=== PATIENT | female | born 2000 | race Caucasian/White ===

== ENCOUNTER 2023-06-16 17:29 | Emergency (ER) | payer OTHER, SELFPAY ==
[2023-06-16 18:20] VITALS: BP 137/83; PULSE 85; RESP 17; TEMP 36.7; O2SAT 100; BMI 23.8
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
== END 2023-06-16 18:46 | disposition home or self-care (01) ==
PROVIDERS: Emergency Provider Emergency Medicine
DX: S13.4XXA Sprain of ligaments of cervical spine, initial encounter (principal); S39.012A Strain of muscle, fascia and tendon of lower back, initial encounter; V73.5XXA Driver of bus injured in collision with car, pick-up truck or van in traffic accident, initial encounter; Y93.9 Activity, unspecified; Y92.410 Unspecified street and highway as the place of occurrence of the external cause; Y99.9 Unspecified external cause status
CPT/HCPCS: 99282; 99283

== ENCOUNTER 2023-11-21 00:28 | Emergency (ER) | payer OTHER, SELFPAY ==
--- NOTE | ~2023-11-21 | XR_ITS ---
EXAMINATION: XR ABDOMEN KUB CLINICAL INDICATION: Right-sided pain COMPARISON: None available. TECHNIQUE: AP view of the abdomen. FINDINGS: Bowel gas pattern is nonobstructive. Large amount of stool is present in the colon. Limited assessment for free air with supine positioning. Small calcification in the lateral right upper quadrant may lie in costal cartilage. Right upper quadrant clips are favored to reflect sequelae of prior cholecystectomy. No acute osseous findings are seen. XR/XR KUB IMPRESSION: Nonobstructive bowel gas pattern. Large volume of stool.
[2023-11-21 00:29] VITALS: BP 145/80; PULSE 97; RESP 16; TEMP 37.1; O2SAT 99; BMI 24.2
[2023-11-21 00:46] LABS: Appearance Urine Clear; Color Urine Yellow; Glucose Urine UA Negative (Negative); Leukocyte Esterase Urine Negative (Negative); Nitrite Urine Negative (Negative); Specific Gravity - Urine >= 1.030 (1.005-1.025); Urine Blood Negative (Negative); Urine Ketones Negative (Negative); Urine Protein Negative (Neg-Trace)
[2023-11-21 00:47] LABS: UPreg QC Valid YES; Urine Pregnancy NEGATIVE (NEGATIVE)
[2023-11-21 01:01] LABS: MANUAL DIFF FLAG NO
[2023-11-21 01:02] LABS: Basophils Percent Auto 0.5 % (0-2); Eosinophils Absolute Auto 0.2 X10*3/uL (0.0-0.4); Eosinophils Percent Auto 2.4 % (0-4); Hematocrit 37.9 % (37.0-47.0); Imm Gran Abs Auto 0.01 X10*3/uL (0.00-0.03); Imm Gran Pct Auto 0.1 % (0.0-0.4); Lymphocytes Absolute Auto 2.6 X10*3/uL (1.2-4.9); Lymphocytes Percent Auto 31.3 % (20-40); Mean Corpuscular HGB Conc 34.3 g/dl (31.0-35.0); Mean Corpuscular Volume 87.5 fL (80.0-98.0); Mean Platelet Volume 9.6 fL (9.4-12.3); Monocytes Absolute Auto 0.6 X10*3/uL (0.1-1.2); Monocytes Percent Auto 7.1 % (2-11); Neutrophils Absolute Auto 4.9 x10*3/uL (2.0-8.3); Neutrophils Percent Auto 58.6 % (45-73); Platelet Count 282 X10*3/uL (160-400); Red Blood Count 4.33 X10*6/uL (4.20-5.50); Red Cell Distribution Width 11.9 % (11.0-16.0); White Blood Count 8.3 X10*3/uL (4.8-10.8)
[2023-11-21 01:18] LABS: Alanine Aminotransferase 17 U/L (0-31); Albumin Level 4.4 g/dL (3.5-5.0); Alkaline Phosphatase 58 U/L (39-117); Anion Gap 13 (12-20); Aspartate Amino Transferase 24 U/L (5-31); Bilirubin Direct < 0.2 mg/dL (0.0-0.5); Bilirubin Total 0.2 mg/dL (0.0-1.0); Blood Urea Nitrogen 14 mg/dL (9-16); Calcium 9.4 mg/dL (8.4-10.2); Carbon Dioxide 21 mmol/L (22-29); Chloride 108 mmol/L (96-108); Estimated Glomerular Filt Rate > 60; Glucose Random 98 mg/dL (60-115); Lipase 19 U/L (8-78); Potassium 3.7 mmol/L (3.3-5.1); Sodium 138 mmol/L (135-145); Total Protein 7.7 g/dL (6.5-8.0)
[2023-11-21 02:47] VITALS: BP 131/74; PULSE 76; RESP 16; TEMP 36.6; O2SAT 100
[2023-11-21 02:54] LABS: Appearance Urine Clear; Color Urine Yellow; Glucose Urine UA Negative (Negative); Leukocyte Esterase Urine Negative (Negative); Nitrite Urine Negative (Negative); Specific Gravity - Urine >= 1.030 (1.005-1.025); Urine Blood Negative (Negative); Urine Ketones Negative (Negative); Urine Protein Negative (Neg-Trace)
[2023-11-21 03:01] LABS: Bacteria Urine Trace (None Seen); RBC Urine 0-2 /HPF (0-2); WBC Urine 0-5 /HPF (0-5)
[2023-11-21 03:02] LABS: Hyaline Casts Urine 0-2 /LPF (0-2)
[2023-11-21] MEDS: Ibuprofen 400 MG TABLET PO (03:28)
[2023-11-21] MEDS: Acetaminophen 325 MG TABLET 975 MG PO (03:28)
--- NOTE | 2023-11-21 03:34 | ED_ITS ---
HPI - Abdominal Pain General Chief Complaint: Abdominal Pain Stated Complaint: pain R side Time Seen by Provider: 11/21/23 02:38 Source: patient Mode of arrival: ambulatory History of Present Illness HPI narrative: Female who reports right-sided pelvic discomfort in the lower abdomen that started since yesterday and is rated as a 10/10, she reports some nausea and dizziness as well as dysuria but denies any fever, chills and no vomiting. Patient states that her LMP was approximately 3 weeks ago. Patient reports she has been treated for chlamydia twice. Related Data Previous Rx's Medication Instructions Recorded cyclobenzaprine 5 mg tablet 5 mg PO TID PRN muscle spasm #10 06/16/23 tabs lidocaine 5 % topical patch 1 patch topical DAILY #15 ea 06/16/23 Allergies Allergy/AdvReac Type Severity Reaction Status Date / Time No Known Allergies Allergy Verified 11/21/23 00:32 Review of Systems Review of Systems Pertinent positives and negatives as stated in HPI PMFSH Past Medical History Source: nursing notes reviewed Social History Social History Advance Directives: No Advance Directives Information Provided: No Physical Exam ED Vital Signs: Vital Signs - 24 hr 11/21/23 00:29 11/21/23 02:47 Temperature 98.7 F 97.8 F Pulse Rate 97 76 Respiratory Rate 16 16 Blood Pressure 145/80 H 131/74 Pulse Oximetry 99 100 Oxygen Delivery Method Room Air Room Air BMI result Body Mass Index 24.2 VITAL SIGNS: Reviewed. GENERAL: Well developed, well nourished, in no acute distress. HEAD: Normocephalic/atraumatic EYES: PERRLA, EOMI EARS: Ext canals without abnormality OROPHARYNX: no oral lesions noted, posterior pharynx clear NECK: Supple, no adenopathy LUNGS: Normal breath sounds. No adventitious sounds or accessory muscle use. SpO2<100> CARDIOVASCULAR: Regular rate and rhythm without noted murmurs ABDOMEN: Soft, non-tender, non-distended with bowel sounds. MUSCULOSKELETAL: No tenderness, deformities, or effusions noted on gross inspection. EXTREMITIES: No cyanosis, clubbing or edema. SKIN: Inspection of the skin reveals no rashes NEUROLOGIC: Alert and oriented x 4. Strength and sensation to light touch were grossly intact x 4. Medical Decision Making Medical Decision Making MDM Narrative: This is a 23 female who otherwise appears well and has a history and clinical presentation, DDX: UTI, constipation, ectopic, low clinical suspicion for appendicitis and no suspicion for obstruction I reviewed all investigations and hematologic indices are grossly within normal limits without any noted derangements, patient remained afebrile and otherwise appears comfortable. Chemistry indices are grossly within normal limits without evidence of or electrolyte/liver enzyme derangements. Lipase is within normal limits. Urinalysis is negative for UTI or hematuria. KUB demonstrates a nonobstructive bowel gas pattern but notes that there is a large amount of stool. All results and findings were discussed with the patient at the bedside. My interpretation is that patient may be suffering from constipation as well as a possible component of [place]. Differential Diagnosis Differential Diagnoses: The differential diagnosis associated with the presentation includes Please see the discussion above Admission/Observation Consideration of admission/observation: Escalation of care including admission/observation considered Please see the discussion above Lab Data [facility] Lab Attestation statement: I reviewed the patient's lab results. Please see the discussion above 11/21/23 00:54 11/21/23 00:54 Labs: Lab Results 11/21/23 11/21/23 11/21/23 Range/Units 00:39 00:54 02:49 WBC 8.3 (4.8-10.8) X10*3/uL RBC 4.33 (4.20-5.50) X10*6/uL Hgb 13.0 (12.0-16.0) g/dl Hct 37.9 (37.0-47.0) % MCV 87.5 (80.0-98.0) fL MCH 30.0 (27.0-33.0) pg MCHC 34.3 (31.0-35.0) g/dl RDW 11.9 (11.0-16.0) % Plt Count 282 (160-400) X10*3/uL MPV 9.6 (9.4-12.3) fL Immature Gran % (Auto) 0.1 (0.0-0.4) % Neut % (Auto) 58.6 (45-73) % Lymph % (Auto) 31.3 (20-40) % [place] % (Auto) 7.1 (2-11) % Eos % (Auto) 2.4 (0-4) % Baso % (Auto) 0.5 (0-2) % Lymph # (Auto) 2.6 (1.2-4.9) X10*3/uL [place] # (Auto) 0.6 (0.1-1.2) X10*3/uL Eos # (Auto) 0.2 (0.0-0.4) X10*3/uL Baso # (Auto) 0.0 (0.0-0.2) X10*3/uL Abs Immat Gran (auto) 0.01 (0.00-0.03) X10*3/uL Absolute Neuts (auto) 4.9 (2.0-8.3) x10*3/uL Absolute Nucleated RBC 0.000 (0.0-0.012) X10*3/uL Nucleated RBC % (auto) 0.0 (0.0-0.2) /100WBC Sodium 138 (135-145) mmol/L Potassium 3.7 (3.3-5.1) mmol/L Chloride 108 (96-108) mmol/L Carbon Dioxide 21 L (22-29) mmol/L Anion Gap 13 (12-20) BUN 14 (9-16) mg/dL Creatinine 0.78 (0.5-1.4) mg/dL Estim Creat Clear Calc 96.0 Estimated GFR > 60 Random Glucose 98 (60-115) mg/dL Calcium 9.4 (8.4-10.2) mg/dL Total Bilirubin 0.2 (0.0-1.0) mg/dL Direct Bilirubin < 0.2 (0.0-0.5) mg/dL AST 24 (5-31) U/L ALT 17 (0-31) U/L Alkaline Phosphatase 58 (39-117) U/L Total Protein 7.7 (6.5-8.0) g/dL Albumin 4.4 (3.5-5.0) g/dL Lipase 19 (8-78) U/L Urine Color Yellow Yellow Urine Appearance Clear Clear Urine pH 6.0 6.0 (5.0-9.0) Ur Specific [place] >= 1.030 H >= 1.030 H (1.005-1.025) Urine Protein Negative Negative (Neg-Trace) mg/dL Urine Glucose (UA) Negative Negative (Negative) mg/dL Urine Ketones Negative Negative (Negative) mg/dL Urine Blood Negative Negative (Negative) Urine Nitrite Negative Negative (Negative) Ur Leukocyte Esterase Negative Negative (Negative) Urine RBC 0-2 (0-2) /HPF Urine WBC 0-5 (0-5) /HPF Ur Squamous Epith Cells 6-10 (0-2) /HPF Urine Bacteria Trace (None Seen) Hyaline Casts 0-2 (0-2) /LPF Urine Test NEGATIVE (NEGATIVE) Radiology Impression Discussion of test interpretation with radiology: I have reviewed the radiologist's reading. Radiologist Impression: Please see the discussion above Medications Administered Discontinued Medications Generic Name Dose Route Start Last Admin Trade Name Freq PRN Reason Stop Dose Admin Acetaminophen 975 mg 11/21/23 03:19 11/21/23 03:28 Acetaminophen 325 Mg Tablet PO 11/21/23 03:20 975 mg ONCE ONE Administration Ibuprofen 400 mg 11/21/23 03:19 11/21/23 03:28 Ibuprofen 400 Mg Tablet PO 11/21/23 03:20 400 mg ONCE ONE Administration Discharge Plan Discharge Clinical Impression: Constipation Patient Disposition: Home, Self-Care Instructions: Polyethylene Glycol 3350 (By mouth), Constipation (ED), High Fiber Diet (ED) Additional Instructions: 1. Resume all home medications as prescribed. 2. Recommend utilizing [id number] MiraLax as this may help with suspected constipation. 3. Follow-up with your primary care doctor at your earliest convenience. Please return to the emergency room should you experience any worsening symptoms such as nausea/vomiting/fever/chills Prescriptions: No Action cyclobenzaprine 5 mg tablet 5 mg PO TID PRN (Reason: muscle spasm) Qty: 10 0RF lidocaine 5 % adhesive patch,medicated 1 patch topical DAILY Qty: 15 0RF Rx Instructions: leave on most painful area for up to 12 hrs
== END 2023-11-21 03:59 | disposition home or self-care (01) ==
PROVIDERS: Emergency Provider Student in an Organized Health Care Education/Training Program
DX: K59.00 Constipation, unspecified (principal); R10.31 Right lower quadrant pain; Z79.899 Other long term (current) drug therapy
CPT/HCPCS: 36415; 74018; 80048; 80076; 81001; 81003; 81025; 83690; 85025; 99283; 99284

== ENCOUNTER 2024-05-26 21:13 | Emergency (ER) | payer OTHER, SELFPAY ==
[2024-05-26 21:15] VITALS: BP 148/93; PULSE 91; RESP 18; TEMP 36.8; O2SAT 98; BMI 26.4
[2024-05-26 22:14] LABS: Appearance Urine Clear; Color Urine Yellow; Glucose Urine UA Negative (Negative); Leukocyte Esterase Urine Trace (Negative); Nitrite Urine Negative (Negative); PH 6.5 (5.0-9.0); UMIC TRIGGER UACC YES; Urine Blood Negative (Negative); Urine Ketones Negative (Negative); Urine Protein Negative (Neg-Trace)
--- NOTE | 2024-05-26 22:22 | ED_ITS ---
HPI - Female Genitourinary General Chief complaint: Urogenital-Female Stated complaint: pelvic pain and bleeding Time Seen by Provider: 05/26/24 22:21 Source: patient and family (patient's cousin) Mode of arrival: ambulatory Limitations: no limitations History of Present Illness HPI Narrative: Patient is a 23 year old assigned female at with a history of recent STI treatment presenting to the emergency department today with continued vaginal pain and foul smelling vaginal discharge. Patient states that she was treated for STIs 3 weeks ago and completed her treatment as directed. Patient states that she has been continuing to have vaginal pain and is now having foul smelling vaginal discharge. Patient denies any dizziness, lightheadedness, abdominal pain, nausea, vomiting, fever, chills, blurry vision, double vision, loss of vision, chest pain, difficulty breathing, shortness of breath, back pain, night sweats, pain with urination, increased urinary frequency, increased urinary urgency, syncope or a near syncopal episode, recent trauma or falls, bowel incontinence, bladder incontinence, or any other complaints at this time. Related Data Previous Rx's ?Medication ?Instructions ?Recorded cyclobenzaprine 5 mg tablet 5 mg PO TID PRN muscle spasm #10 06/16/23 tabs lidocaine 5 % topical patch 1 patch topical DAILY #15 ea 06/16/23 fluconazole 150 mg tablet 150 mg PO Q3D 2 doses #1 tab 05/26/24 metronidazole 500 mg tablet 500 mg PO BID 7 days #14 tabs 05/26/24 Allergies Allergy/AdvReac Type Severity Reaction Status Date / Time No Known Allergies Allergy Verified 05/26/24 21:20 Review of Systems Review of Systems: Positive foul odor discharge Constitutional: Constitutional: Reports no additional constitutional complaints, Denies chills, Denies fever(s) and Denies night sweats Eyes: Eyes: Reports no additional eye complaints, Denies blurry vision, Denies change in vision, Denies diplopia, Denies eye discharge, Denies loss of vision and Denies eye pain ENT: Denies dizziness Cardiovascular: Cardiovascular: Reports no additional cardiovascular complaints, Denies chest pain, Denies lightheadedness, Denies Loss of Consciousness and Denies dyspnea Respiratory: Respiratory: Reports no additional respiratory complaints and Denies dyspnea Gastrointestinal: Gastrointestinal: Reports no additional gastrointestinal complaints, Denies abdominal pain, Denies melena, Denies hematochezia, Denies change in bowel habits and Denies change in stool character Genitourinary: Genitourinary: Denies hematuria, Denies urinary frequency, Denies dysuria, Denies urinary incontinence, Denies urinary hesitancy and Denies urinary urgency Comments: vaginal pain foul smelling vaginal discharge Musculoskeletal: Musculoskeletal: Reports no additional musculoskeletal complaints, Denies numbness and Denies tingling Neurologic: Denies dizziness, Denies loss of vision, Denies numbness and Denies tingling Psychiatric: Psychiatric: Reports no additional psychiatric complaints Endocrine: Endocrine: Reports no additional endocrine complaints Hematologic/Lymphatic: Hematologic/Lymphatic: Reports no additional hematologic/lymphatic complaints Allergic/Immunologic: Allergic/Immunologic: Reports no additional allergic/immunologic complaints PMF Past Medical History Attestation statement: The following information was validated with the patient. (all information validated with the patient's cousin) Source: old records reviewed, obtained from family (patient's cousin provided additional history and confirmed the history provided by the patient) and nursing notes reviewed Social History Social History Advance Directives: No Advance Directives Information Provided: No Do you have a plan to hurt others: No Plan Physical Exam Vital Signs: Vital Signs: Last Vital Signs Temp 98.3 F 05/26/24 21:15 Pulse 91 05/26/24 21:15 Resp 18 05/26/24 21:15 BP 148/93 H 05/26/24 21:15 Pulse Ox 98 05/26/24 21:15 O2 Del Method Room Air 05/26/24 21:15 BMI result Body Mass Index 26.4 Appearance: Alert. Oriented X3. No acute distress. Eyes: Pupils equal, round and reactive to light. ENT: Pharynx normal. Neck: Normal inspection. Neck supple. No lymph nodes noted. No crepitus CVS: Normal heart rate and rhythm. Pulses normal. Normal S1 and S2 Respiratory: No respiratory distress. Breath sounds normal. No Wheezing. No rales Abdomen: Soft and nontender. No rigidity. No distention. good BS x4 Skin: Skin warm and dry. Normal skin color. Normal skin turgor. Extremities: No lower extremity edema. Neurovascular intact to all extremities. No Lacerations. No Rash Neuro: Oriented X 3. No motor deficit. No sensory deficit. Moving all extermities. No slurred speech Const: General: cooperative, no acute distress, alert and awake Nutritional Appearance: well nourished Orientation/consciousness: patient oriented x3 Limitations: no limitations HEENT: Head: Yes normal to inspection and Yes atraumatic Ears: hearing grossly normal bilaterally and external ears normal General nose exam: Normal external nose present, no nasal discharge noted and no epistaxis Face and sinus: Yes normal facial exam, No abrasion and No laceration Mouth: Normal oral and palatal mucosa present, no drooling and no muffled voice Eyes: General: appearance normal, both eyes and all related structures Periorbital: periorbital findings normal Eyelids: Yes eyelids normal Conjunctivae: conjunctivae normal Pupils: Equal, round and reactive pupils present EOM: EOMs intact bilaterally Neck: Neck: Yes normal visual inspection, Yes full ROM and Yes no lymphadenopathy Chest: Chest palpation & inspection: normal inspection of the chest Resp: Effort & Inspection: normal respiratory effort and able to speak in complete sentences GI: Inspection: Yes normal to inspection : Other: patient deferred speculum examination External Female Exam: normal external appearance Neuro: General: patient oriented x3 and moves all extremities Cranial nerves: Yes Equal, round and reactive pupils present Cognition (Neuro): normal cognition Extrem: General: Yes normal to inspection, Yes full ROM and Yes capillary refill normal Psych: Appearance: grossly normal Mental Status: mental status grossly normal Affect: normal affect Attitude: cooperative Thought process: Normal thought process present Thought content: Normal thought content pre sent Insight: Good insight present (Psych) Medical Decision Making Medical Decision Making MDM Narrative: Patient is a 23 year old assigned female at with a history of recent STI treatment presenting to the emergency department today with vaginal pain and foul smelling vaginal discharge. Patient's physical exam was unremarkable. Patient's urine showed no acute process. Patient's CT/NG, BV, and trich tests are pending. Given patient's clinical presentation and physical exam, will treat for BV/Trich and yeast. I explained my physical exam findings as well as all test results to the patient and the patient's cousins. I answered all questions asked by the patient and the patient's cousin. I stressed the importance of the patient taking her medication as directed (either prescribed or as the over the counter packaging recommends). I stressed the importance of the patient following up with her primary care provider. I stressed the importance of the patient returning to the emergency department immediately if her symptoms were to worsen or if she were to develop any dizziness, shortness of breath, difficulty breathing, chest pain, blurry vision, loss of vision, nausea, vomiting, abdominal pain, fever, chills, back pain, or any other complaints. Patient and the patient's cousin verbalized agreement and understanding with this treatment plan and discharge. Differential Diagnosis Differential Diagnoses: The differential diagnosis associated with the presentation includes Vaginal discharge BV Trich Chlamydia Gonorrhea Admission/Observation Consideration of admission/observation: Escalation of care including admission/observation considered Patient would have been admitted to the hospital had her work up had any find ings where hospital admission was appropriate and her clinical presentation warranted hospital admission. Lab Data [facility] Lab Attestation statement: I reviewed the patient's lab results. My interpretation of these results are in the [facility] Rationale portion of this note. Labs: Lab Results 05/26/24 Range/Units 21:55 Urine Color Yellow Urine Appearance Clear Urine pH 6.5 (5.0-9.0) Ur Specific [place] 1.010 (1.005-1.025) Urine Protein Negative (Neg-Trace) mg/dL Urine Glucose (UA) Negative (Negative) mg/dL Urine Ketones Negative (Negative) mg/dL Urine Blood Negative (Negative) Urine Nitrite Negative (Negative) Ur Leukocyte Esterase Trace H (Negative) Urine RBC 0-2 (0-2) /HPF Urine WBC 0-5 (0-5) /HPF Ur Squamous Epith Cells 0-2 (0-2) /HPF Urine Bacteria None Seen (None Seen) Hyaline Casts 0-2 (0-2) /LPF Urine Test NEGATIVE (NEGATIVE) Independent Historian Clinical information obtained from an independent historian. History obtained from or confirmed by: Other (patient's cousin provided additional history and confirmed the history provided by the patient.) Prescription Management I considered prescription management with: Antibiotic (patient prescribed an antibiotic to cover for trich/BV) and Other (patient prescribed an antifungal) Discharge Plan Discharge Clinical Impression: Vaginal discharge Patient Disposition: Home, Self-Care Instructions: Vaginal Discharge (ED) Additional Instructions: Follow up with your primary care provider. Return to the emergency department immediately if your symptoms worsen or if you develop any dizziness, shortness of breath, difficulty breathing, chest pain, blurry vision, loss of vision, nausea, vomiting, abdominal pain, fever, chills, back pain, or any other complaints. We will call you in 1-3 business days if your results are positive. Please see the information below about our Patient Portal. If you are not yet enrolled in the [facility] Patient Portal, you will receive an enrollment email invitation following your visit to any [facility] care setting. You may also self-enroll in the Patient Portal by visiting our website: [email or web address] The following information is required to access the Patient Portal: - Your [facility] Medical Record Number - Your personal home email address (must match what is in your electronic medical record, Registration staff can assist with this) - Name - Date of Capabilities of the Patient Portal: - Message some providers - View upcoming appointments - Access your health summary, medical history, and visit history - View current conditions and allergies - View procedure and lab results - View your medications, including guidelines, side effects, and precautions - Complete pre-appointment questionnaires requested by your provider - Ready summary reports of your office visits and procedures To access the Patient Portal Mobile [employer], follow these directions: - Search Sproutel in the [employer]entes Store or Google Play Store - Download the Fuentes - Search for [facility] - Enter your login/password Prescriptions: New fluconazole 150 mg tablet 150 mg PO Q3D Qty: 1 0RF metronidazole 500 mg tablet 500 mg PO BID 7 Days Qty: 14 0RF No Action cyclobenzaprine 5 mg tablet 5 mg PO TID PRN (Reason: muscle spasm) Qty: 10 0RF lidocaine 5 % adhesive patch,medicated 1 patch topical DAILY Qty: 15 0RF Rx Instructions: leave on most painful area for up to 12 hrs Referrals: [facility] Family Medicine [Provider Group] (Call to establish and follow up with a primary care provider. If you already have a primary care provider, please follow up with them.) [facility] Primary CareMatti [Provider Group] [facility] Primary CareLeyla [Provider Group] Stand Alone Forms: Work/School Release Print Language: Swedish
[2024-05-26 22:24] LABS: Bacteria Urine None Seen (None Seen); Hyaline Casts Urine 0-2 /LPF (0-2); RBC Urine 0-2 /HPF (0-2); Squamous Epithelial Cell Urine 0-2 /HPF (0-2); WBC Urine 0-5 /HPF (0-5)
[2024-05-26 23:04] LABS: UPreg QC Valid YES; Urine Pregnancy NEGATIVE (NEGATIVE)
[2024-05-26] MEDS: metroNIDAZOLE 500 MG TABLET PO (23:32)
[2024-05-26] MEDS: Fluconazole 150 MG TABLET PO (23:32)
[2024-05-26 23:47] VITALS: BP 118/64; PULSE 74; RESP 16; TEMP 36.4; O2SAT 98
[2024-05-27 02:01] LABS: CT PCR NOT DETECTED (Not Detect.); NG PCR NOT DETECTED (Not Detect.)
[2024-05-27 11:04] LABS: Bacterial Vaginosis PCR NEGATIVE (Negative); Candida Group PCR NOT DETECTED (Not Detect); Candida glab krusei PCR NOT DETECTED (Not Detect); Trichomonas vaginalis PCR NOT DETECTED (Not Detect)
== END 2024-05-26 23:48 | disposition home or self-care (01) ==
PROVIDERS: Physician Assistant Medical; Emergency Provider Emergency Medicine Emergency Medical Services; PCP Physician Assistant
DX: N89.8 Other specified noninflammatory disorders of vagina (principal); R10.2 Pelvic and perineal pain; Z79.899 Other long term (current) drug therapy
CPT/HCPCS: 0352U; 81001; 81025; 87491; 87591; 99283; 99284

== ENCOUNTER 2024-05-29 22:52 | Emergency (ER) | payer OTHER, SELFPAY ==
--- NOTE | ~2024-05-29 | US_ITS ---
EXAMINATION: US PELVIS CLINICAL INFORMATION: Recent STI, now with bleeding and right-sided pain. COMPARISON: None available. TECHNIQUE: Ultrasound of the pelvis is performed using both transabdominal and transvaginal transducers along with Doppler. Transvaginal imaging is performed due to inadequate visualization transabdominally. FINDINGS: Uterus: The uterus is anteverted and measures 6.4 x 3.2 x 3.8 cm. The double wall endometrial thickness is 2 mm. The uterus is smooth in contour and has normal myometrial echogenicity. No visible fibroid. Adnexa: Both ovaries are visualized. There is normal color flow to the adnexa. There is no ovarian torsion. Two follicular cysts are present bilaterally. There is no pelvic ascites or fluid collection. Right ovary measures 3.2 x 2.4 x 3.1 cm for a volume of 12.5 mL. Left ovary measures 3.5 x 2.0 x 3.0 cm for a volume of 11 mL There is a paraovarian or exophytic benign water density, 1.6 x 1.2 x 1.6 cm, cyst present. US/US pelvic and transvaginal IMPRESSION: No significant abnormality is seen.
[2024-05-29 22:59] VITALS: BP 130/68; PULSE 81; RESP 18; TEMP 36.5; O2SAT 99; BMI 22.0
[2024-05-30 04:53] VITALS: BP 126/72; PULSE 77; RESP 18; TEMP 36.8; O2SAT 100
[2024-05-30 05:27] LABS: Basophils Absolute Auto 0.1 X10*3/uL (0.0-0.2); Basophils Percent Auto 0.6 % (0-2); Eosinophils Absolute Auto 0.1 X10*3/uL (0.0-0.4); Eosinophils Percent Auto 1.4 % (0-4); Hematocrit 37.9 % (37.0-47.0); Hemoglobin 12.8 g/dl (12.0-16.0); Imm Gran Abs Auto 0.02 X10*3/uL (0.00-0.03); Imm Gran Pct Auto 0.3 % (0.0-0.4); Lymphocytes Absolute Auto 2.4 X10*3/uL (1.2-4.9); Lymphocytes Percent Auto 31.5 % (20-40); MANUAL DIFF FLAG NO; Mean Corpuscular HGB Conc 33.8 g/dl (31.0-35.0); Mean Corpuscular Hemoglobin 30.3 pg (27.0-33.0); Mean Corpuscular Volume 89.6 fL (80.0-98.0); Mean Platelet Volume 9.7 fL (9.4-12.3); Monocytes Absolute Auto 0.6 X10*3/uL (0.1-1.2); Neutrophils Absolute Auto 4.5 x10*3/uL (2.0-8.3); Neutrophils Percent Auto 58.2 % (45-73); Platelet Count 277 X10*3/uL (160-400); Red Blood Count 4.23 X10*6/uL (4.20-5.50); Red Cell Distribution Width 12.2 % (11.0-16.0); White Blood Count 7.7 X10*3/uL (4.8-10.8)
[2024-05-30 05:43] LABS: Anion Gap 13 (12-20); Blood Urea Nitrogen 10 mg/dL (9-16); Calcium 10.1 mg/dL (8.4-10.2); Carbon Dioxide 25 mmol/L (22-29); Chloride 107 mmol/L (96-108); Creatinine Clr Calc Pharmacy 105.4; Estimated Glomerular Filt Rate > 60; Glucose Random 98 mg/dL (60-115); Potassium 3.9 mmol/L (3.3-5.1); Sodium 141 mmol/L (135-145)
[2024-05-30 06:10] VITALS: BP 110/63; PULSE 58; RESP 16; TEMP 37.1; O2SAT 98
--- NOTE | 2024-05-30 07:30 | ED.FEMALEGU ---
HPI - Female Genitourinary General Chief complaint: Urogenital-Female Stated complaint: pelvic pain and bleeding Time Seen by Provider: 05/30/24 04:43 Source: patient Mode of arrival: ambulatory Limitations: no limitations History of Present Illness ED Provider: Dr. Stanford HPI Narrative: Patient was treated for STI and BV now presents with pain and bleeding. Patient was sent to the ED by an Urgent care. Related Data Previous Rx's ?Medication ?Instructions ?Recorded cyclobenzaprine 5 mg tablet 5 mg PO TID PRN muscle spasm #10 06/16/23 tabs lidocaine 5 % topical patch 1 patch topical DAILY #15 ea 06/16/23 fluconazole 150 mg tablet 150 mg PO Q3D 2 doses #1 tab 05/26/24 metronidazole 500 mg tablet 500 mg PO BID 7 days #14 tabs 05/26/24 Allergies Allergy/AdvReac Type Severity Reaction Status Date / Time No Known Allergies Allergy Verified 05/29/24 23:02 Review of Systems Review of Systems: Yes all other systems are reviewed and are negative Neurologic: Denies Sensory deficit (Neuro) [facility] Social History Social History Alcohol intake: current Alcohol intake frequency: holidays/special occasions only Alcohol type: beer and hard liquor Smoked in Last 30 Days: No Use of substances other than those prescribed or required for medical reasons: No Advance Directives: No Advance Directives Information Provided: Yes Do you have a plan to hurt others: No Plan Patient : No Physical Exam Vital Signs: Vital Signs: Last Vital Signs Temp 98.7 F 05/30/24 07:58 Pulse 70 05/30/24 07:58 Resp 18 05/30/24 07:58 BP 126/85 05/30/24 07:58 Pulse Ox 99 05/30/24 07:58 O2 Del Method Room Air 05/30/24 07:58 BMI result Body Mass Index 22.0 Const: General: healthy appearing Nutritional Appearance: average body habitus Orientation/consciousness: oriented to person and patient oriented x3 Limitations: no limitations HEENT: Head: Yes normal to inspection Ears: external ears normal General nose exam: Normal external nose present Mouth: Normal oral and palatal mucosa present and oropharynx normal Throat: Yes posterior oropharynx normal Eyes: General: appearance normal, both eyes and all related structures Neck: Other: supple Neck: Yes normal visual inspection Chest: Chest palpation & inspection: normal inspection of the chest Resp: Auscultation: clear to auscultation bilaterally Cardio: Jugular venous distension: no JVD Rate: regular rate Rhythm: regular rhythm Heart sounds: S1 normal heart sound present and S2 normal heart sound present GI: Other: slight pelvic pain on palpation Inspection: Yes normal to inspection : General: Yes no CVA tenderness Back/Spine/Pelvis: Back: no CVA tenderness Skin: General skin exam: no rashes or lesions noted Neuro: General: oriented to person and patient oriented x3 Cranial nerves: Yes CN's II-XII intact bilaterally Motor exam (neuro): 5/5 motor strength present throughout Sensory Exam: No Sensory deficit (Neuro) Extrem: General: Yes normal to inspection Psych: Appearance: grossly normal Course Reevaluation(s) Reevaluation #1: labs normal awaiting pelvic US results Time: 08:35 Medical Decision Making Differential Diagnosis Differential Diagnoses: The differential diagnosis associated with the presentation includes (ovarian cyst, dysfunctional uterine bleeding) Lab Data 05/30/24 05:23 05/30/24 05:23 Labs: Lab Results 05/30/24 Range/Units 05:23 WBC 7.7 (4.8-10.8) X10*3/uL RBC 4.23 (4.20-5.50) X10*6/uL Hgb 12.8 (12.0-16.0) g/dl Hct 37.9 (37.0-47.0) % MCV 89.6 (80.0-98.0) fL MCH 30.3 (27.0-33.0) pg MCHC 33.8 (31.0-35.0) g/dl RDW 12.2 (11.0-16.0) % Plt Count 277 (160-400) X10*3/uL MPV 9.7 (9.4-12.3) fL Immature Gran % (Auto) 0.3 (0.0-0.4) % Neut % (Auto) 58.2 (45-73) % Lymph % (Auto) 31.5 (20-40) % [place] % (Auto) 8.0 (2-11) % Eos % (Auto) 1.4 (0-4) % Baso % (Auto) 0.6 (0-2) % Lymph # (Auto) 2.4 (1.2-4.9) X10*3/uL [place] # (Auto) 0.6 (0.1-1.2) X10*3/uL Eos # (Auto) 0.1 (0.0-0.4) X10*3/uL Baso # (Auto) 0.1 (0.0-0.2) X10*3/uL Abs Immat Gran (auto) 0.02 (0.00-0.03) X10*3/uL Absolute Neuts (auto) 4.5 (2.0-8.3) x10*3/uL Absolute Nucleated RBC 0.000 (0.0-0.012) X10*3/uL Nucleated RBC % (auto) 0.0 (0.0-0.2) /100WBC Sodium 141 (135-145) mmol/L Potassium 3.9 (3.3-5.1) mmol/L Chloride 107 (96-108) mmol/L Carbon Dioxide 25 (22-29) mmol/L Anion Gap 13 (12-20) BUN 10 (9-16) mg/dL Creatinine 0.74 (0.5-1.4) mg/dL Estim Creat Clear Calc 105.4 Estimated GFR > 60 Random Glucose 98 (60-115) mg/dL Calcium 10.1 D (8.4-10.2) mg/dL Independent Interpretation I performed an independent interpretation of an: Ultrasound (normal ovarian follicles) Independent Historian Clinical information obtained from an independent historian. History obtained from or confirmed by: Friend Prescription Management I considered prescription management with: Antibiotic (patient already treated for STI and BV) Discharge Plan Discharge Clinical Impression: DUB (dysfunctional uterine bleeding) Patient Disposition: Home, Self-Care Instructions: Dysfunctional Uterine Bleeding (ED) Prescriptions: No Action cyclobenzaprine 5 mg tablet 5 mg PO TID PRN (Reason: muscle spasm) Qty: 10 0RF lidocaine 5 % adhesive patch,medicated 1 patch topical DAILY Qty: 15 0RF Rx Instructions: leave on most painful area for up to 12 hrs fluconazole 150 mg tablet 150 mg PO Q3D Qty: 1 0RF metronidazole 500 mg tablet 500 mg PO BID 7 Days Qty: 14 0RF Referrals: Alan Butler MD [Physician] - 1 week Print Language: Romansh
[2024-05-30 07:58] VITALS: BP 126/85; PULSE 70; RESP 18; TEMP 37.1; O2SAT 99
--- NOTE | 2024-05-30 08:11 | PC.NURSE ---
Resumed care of pt at 0700. A/ox4, respirations even and unlabored, no increased SOB/WOB. Signifcant other at bedside, awaiting ultrasound report, pt aware of plan of care, call smith within reach.
[2024-05-30 09:07] VITALS: BP 126/85; PULSE 98; RESP 18; TEMP 37.1; O2SAT 98
== END 2024-05-30 09:09 | disposition home or self-care (01) ==
PROVIDERS: Emergency Provider Emergency Medicine; PCP Physician Assistant
DX: N93.8 Other specified abnormal uterine and vaginal bleeding (principal); R10.2 Pelvic and perineal pain
CPT/HCPCS: 36415; 76830; 76856; 80048; 85025; 99284

== ENCOUNTER 2024-08-05 20:41 | Emergency (ER) | payer OTHER, SELFPAY ==
[2024-08-05 20:49] VITALS: BP 119/77; PULSE 89; RESP 20; TEMP 36.5; O2SAT 98; BMI 24.8
--- NOTE | 2024-08-05 20:49 | ED.GENADULT ---
HPI - General Adult General Chief complaint: General Medical Stated complaint: needlestick at work Time Seen by Provider: 08/05/24 23:20 Source: patient Mode of arrival: ambulatory Limitations: no limitations History of Present Illness ED Provider: Dr. Miriam Lagunas HPI narrative: Patient comes to the emergency room reporting that earlier today at work, she was waiting at the pharmacy in [employer], accidentally stuck herself in the right palm of the hand with a needle. Patient states that the needle was contaminated, used on a patient. Patient was discharged from the pharmacy and they do not know anything else about the patient. Patient states that after poking herself, she soak her hand in water and soap. Related Data Previous Rx's ?Medication ?Instructions ?Recorded cyclobenzaprine 5 mg tablet 5 mg PO TID PRN muscle spasm #10 06/16/23 tabs lidocaine 5 % topical patch 1 patch topical DAILY #15 ea 06/16/23 fluconazole 150 mg tablet 150 mg PO Q3D 2 doses #1 tab 05/26/24 metronidazole 500 mg tablet 500 mg PO BID 7 days #14 tabs 05/26/24 Allergies Allergy/AdvReac Type Severity Reaction Status Date / Time No Known Allergies Allergy Verified 08/05/24 20:51 Review of Systems Review of Systems: Constitutional : No Weight loss, No Fever, No Chills, No Night Sweats, No Fatigue, No Malaise ENT/Mouth : No Hearing loss, No Ear Pain, No Nasal Congestion, No Sinus Pain, No Hoarseness, No sore throat, No Rhinorrhea, No Swallowing Difficulty Eyes: No Eye Pain, No Swelling, No Redness, No Foreign Body, No Discharge, No Vision Changes Cardiovascular : No Chest Pain, No SOB, No Dyspnea on Exertion, No Orthopnea, No Edema, No Palpitations Respiratory : No Cough, No Sputum, No Wheezing, No Smoke Exposure, No Dyspnea Gastrointestinal : No Nausea, No Vomiting, No Diarrhea, No Constipation, No abdominal Pain, No Hematochezia, No Melena Genitourinary : no irregular bleeding, No Dysuria, No Urinary Frequency, No Hematuria, No Urinary Incontinence, No Urgency, No Flank Pain, No Urinary Flow Changes, No Hesitancy Musculoskeletal : No joint pain, No Myalgias, No Joint Swelling Skin : Needlestick to the right palm Neuro : No Weakness, No Numbness, No Paresthesias, No Loss of Consciousness, No Dizziness, No Headache Psych : No Anxiety/Panic, No Depression, No SI/HI/AH/VH, No Social Issues, Heme/Lymph: No Bruising, No Bleeding,No Lymphadenopathy Endocrine : No Polyuria, No Polydipsia, No Temperature Intolerance [facility] Social History Social History Alcohol intake: current Alcohol intake frequency: holidays/special occasions only Alcohol type: beer and hard liquor Advance Directives: No Advance Directives Information Provided: No Do you have a plan to hurt others: No Plan Physical Exam ED Vital Signs: Vital Signs - 24 hr 08/05/24 20:49 08/05/24 22:57 Temperature 97.7 F 98.6 F Pulse Rate 89 90 Respiratory Rate 20 16 Blood Pressure 119/77 130/70 Pulse Oximetry 98 97 Oxygen Delivery Method Room Air Room Air BMI result Body Mass Index 24.8 Const Other: Appearance: Alert. Oriented X3. No acute distress. Eyes: Pupils equal, round and reactive to light. ENT: Pharynx normal. Neck: Normal inspection. Neck supple. No lymph nodes noted. No crepitus CVS: Normal heart rate and rhythm. Pulses normal. Normal S1 and S2 Respiratory: No respiratory distress. Breath sounds normal. No Wheezing. No rales Abdomen: Soft and nontender. No rigidity. No distention. Skin: Skin warm and dry. Normal skin color. Normal skin turgor. Extremities: No lower extremity edema. No Lacerations. No Rash. In the right palm, there is a puncture wound. Looks clean otherwise. No cellulitis, patient able to flex and extend all fingers of the hand. Neuro: Oriented X 3. No motor deficit. No sensory deficit. Moving all extremities. No slurred speech. CN 2 through 12 grossly intact Psych: calm, cooperative, normal affect Course Course Course Narrative: This is an RME: Additional HPI, ROS, PE not included below will be deferred to primary provider. RME assessment and note performed by: Jyoti Bertrand PA-C This is a 23 year old female who presents to the ER with complaints of needlestick at work. She works at [employer] and accidentally poked herself with a needle that was used for a covid shot. She is unsure the patient's PMHx. Reports tdap is UTD Plan: Labs Medical Decision Making Medical Decision Making [facility] Narrative: My interpretation of labs: Hematology and chemistry within normal limits, hCG negative, normal LFTs, serology for hepatitis and HIV are pending. -discussed with the patient that we can start the antiviral prophylaxis. Discussed with the patient the side effects. Patient states that she would like to go ahead and start the medications today. -patient was provided with the 1st dose of the antiviral from the post exposure kit -patient was given information to follow-up in were connection, also given the phone number for infectious disease for outpatient follow-up. Differential Diagnosis Differential Diagnoses: The differential diagnosis associated with the presentation includes (Puncture wound, cellulitis) Lab Data [facility] Lab Attestation statement: I reviewed the patient's lab results. 08/05/24 21:24 08/05/24 21:24 Labs: Lab Results 08/05/24 Range/Units 21:24 WBC 7.9 (4.8-10.8) X10*3/uL RBC 4.29 (4.20-5.50) X10*6/uL Hgb 12.9 (12.0-16.0) g/dl Hct 37.5 (37.0-47.0) % MCV 87.4 (80.0-98.0) fL MCH 30.1 (27.0-33.0) pg MCHC 34.4 (31.0-35.0) g/dl RDW 12.5 (11.0-16.0) % Plt Count 272 (160-400) X10*3/uL MPV 9.6 (9.4-12.3) fL Immature Gran % (Auto) 0.1 (0.0-0.4) % Neut % (Auto) 66.7 (45-73) % Lymph % (Auto) 25.8 (20-40) % [place] % (Auto) 6.4 (2-11) % Eos % (Auto) 0.5 (0-4) % Baso % (Auto) 0.5 (0-2) % Lymph # (Auto) 2.0 (1.2-4.9) X10*3/uL [place] # (Auto) 0.5 (0.1-1.2) X10*3/uL Eos # (Auto) 0.0 (0.0-0.4) X10*3/uL Baso # (Auto) 0.0 (0.0-0.2) X10*3/uL Abs Immat Gran (auto) 0.01 (0.00-0.03) X10*3/uL Absolute Neuts (auto) 5.2 (2.0-8.3) x10*3/uL Absolute Nucleated RBC 0.000 (0.0-0.012) X10*3/uL Nucleated RBC % (auto) 0.0 (0.0-0.2) /100WBC Sodium 138 (135-145) mmol/L Potassium 3.4 (3.3-5.1) mmol/L Chloride 107 (96-108) mmol/L Carbon Dioxide 21 L (22-29) mmol/L Anion Gap 13 (12-20) BUN 13 (9-16) mg/dL Creatinine 0.67 (0.5-1.4) mg/dL Estim Creat Clear Calc 116.5 Estimated GFR > 60 Random Glucose 87 (60-115) mg/dL Calcium 9.8 (8.4-10.2) mg/dL Total Bilirubin 0.4 (0.0-1.0) mg/dL Direct Bilirubin 0.1 (0.0-0.5) mg/dL AST 25 (5-31) U/L ALT 13 (0-31) U/L Alkaline Phosphatase 46 (39-117) U/L Total Protein 7.7 (6.5-8.0) g/dL Albumin 4.6 (3.5-5.0) g/dL Lipase 12 (8-78) U/L Beta HCG, Quant < 2 mIU/mL Discharge Plan Discharge Clinical Impression: Accidental needlestick injury with exposure to body fluid Patient Disposition: Home, Self-Care Instructions: Needle Stick Injuries (ED) Additional Instructions: Please follow-up with your primary care physician tomorrow. If you have any worsening or new symptoms, please return to the emergency room or call 911 Prescriptions: No Action cyclobenzaprine 5 mg tablet 5 mg PO TID PRN (Reason: muscle spasm) Qty: 10 0RF lidocaine 5 % adhesive patch,medicated 1 patch topical DAILY Qty: 15 0RF Rx Instructions: leave on most painful area for up to 12 hrs fluconazole 150 mg tablet 150 mg PO Q3D Qty: 1 0RF metronidazole 500 mg tablet 500 mg PO BID 7 Days Qty: 14 0RF Referrals: Danette Corey MD [Physician] - 08/06/24 Jd Gomez MD [Physician] - 1 day Print Language: Citizen Of [place]
[2024-08-05 21:30] LABS: MANUAL DIFF FLAG NO
[2024-08-05 21:32] LABS: Basophils Percent Auto 0.5 % (0-2); Eosinophils Percent Auto 0.5 % (0-4); Hematocrit 37.5 % (37.0-47.0); Hemoglobin 12.9 g/dl (12.0-16.0); Imm Gran Abs Auto 0.01 X10*3/uL (0.00-0.03); Imm Gran Pct Auto 0.1 % (0.0-0.4); Lymphocytes Percent Auto 25.8 % (20-40); Mean Corpuscular HGB Conc 34.4 g/dl (31.0-35.0); Mean Corpuscular Hemoglobin 30.1 pg (27.0-33.0); Mean Corpuscular Volume 87.4 fL (80.0-98.0); Mean Platelet Volume 9.6 fL (9.4-12.3); Monocytes Absolute Auto 0.5 X10*3/uL (0.1-1.2); Monocytes Percent Auto 6.4 % (2-11); Neutrophils Absolute Auto 5.2 x10*3/uL (2.0-8.3); Neutrophils Percent Auto 66.7 % (45-73); Platelet Count 272 X10*3/uL (160-400); Red Blood Count 4.29 X10*6/uL (4.20-5.50); Red Cell Distribution Width 12.5 % (11.0-16.0); White Blood Count 7.9 X10*3/uL (4.8-10.8)
[2024-08-05 21:54] LABS: Alanine Aminotransferase 13 U/L (0-31); Albumin Level 4.6 g/dL (3.5-5.0); Alkaline Phosphatase 46 U/L (39-117); Anion Gap 13 (12-20); Aspartate Amino Transferase 25 U/L (5-31); Bilirubin Direct 0.1 mg/dL (0.0-0.5); Bilirubin Total 0.4 mg/dL (0.0-1.0); Blood Urea Nitrogen 13 mg/dL (9-16); Calcium 9.8 mg/dL (8.4-10.2); Carbon Dioxide 21 mmol/L (22-29); Chloride 107 mmol/L (96-108); Creatinine Clr Calc Pharmacy 116.5; Estimated Glomerular Filt Rate > 60; Glucose Random 87 mg/dL (60-115); Lipase 12 U/L (8-78); Potassium 3.4 mmol/L (3.3-5.1); Sodium 138 mmol/L (135-145); Total Protein 7.7 g/dL (6.5-8.0)
[2024-08-05 22:09] LABS: HCG Quantitative < 2 mIU/mL
[2024-08-05 22:57] VITALS: BP 130/70; PULSE 90; RESP 16; TEMP 37; O2SAT 97
[2024-08-05] MEDS: Post Exposure Medication Kit 1 KIT PO (23:47)
[2024-08-05 23:52] VITALS: BP 130/70; PULSE 90; RESP 16; TEMP 37; O2SAT 97
[2024-08-06 08:26] LABS: HBS Num1 4.48 mIU/mL (0-7.99); HBc Num1 0.09 S/CO (0.00-0.79); HBsAGNum1 0.47 S/CO (0.00-0.99); HIV AB/AG Nonreactive (Nonreactive); HIV Num 1 0.05 S/CO (0.00-0.99); Hepatitis B Core Antibody Nonreactive (Nonreactive); Hepatitis B Surface Antigen Negative (Negative); ~HepC Num1 0.09 S/CO (0.00-0.79); ~Hepatitis B Surface Antibody NONREACTIVE (Nonreactive); ~Hepatitis C Antibody Nonreactive (Nonreactive)
== END 2024-08-05 23:53 | disposition home or self-care (01) ==
PROVIDERS: Physician Assistant Medical; Emergency Provider Emergency Medicine
DX: S61.431A Puncture wound without foreign body of right hand, initial encounter (principal); M79.641 Pain in right hand; Y28.9XXA Contact with unspecified sharp object, undetermined intent, initial encounter; Y93.89 Activity, other specified; Y92.89 Other specified places as the place of occurrence of the external cause; Y99.0 Civilian activity done for income or pay; Z20.9 Contact with and (suspected) exposure to unspecified communicable disease; Z79.899 Other long term (current) drug therapy; Z83.438 Family history of other disorder of lipoprotein metabolism and other lipidemia
CPT/HCPCS: 36415; 80048; 80076; 83690; 84702; 85025; 86704; 86706; 86803; 87340; 87389; 99282; 99283

== ENCOUNTER 2024-09-05 11:13 | Outpatient (AMB) | payer OTHER, SELFPAY ==
[2024-09-05 11:23] VITALS: BP 122/78; BMI 24.5
--- NOTE | 2024-09-05 11:23 | A.OFFVIS_ITS ---
Vital Signs 09/05/24 11:23 Height 5 ft 5 in Weight 147 lb BMI 24.5 BP 122/78 Intake Visit Reasons: new patient ER follow up/pelvic pain Outsole Tacker Required: No Information Interpreted: clinical only Wiper Blender: Wiper Blender Present Allergies No Known Allergies Allergy (Verified 09/05/24 11:30) Medication List - Last Reconciled 09/05/24 by Juliana Dudley CNM trazodone 50 mg PO BEDTIME PRN Is last menstrual period known: Yes Last menstrual period: 08/14/24 HPI HPI new patient ER follow up/pelvic pain: Details: Patient referred from ER after visit where she was seen pelvic pain in May. She said she always has been for periods and she has a steady partner now she had a different partner when she was mammo and she chlamydia from that person so she broke up with. She does not have a obstetrician/gynecologist provider has used an emergency rooms for obstetrician/gynecologist care and other care. Pelvic pain she describes she said was more with a previous partner she was having sex and also 1 time when the penetration was very deep. She said she was treated for the chlamydia. She said that she has been tested in the emergency room and they have told her that she had BV and she has treated that. She does not use control other than condoms. She says she always uses them. She is open to get an for different STIs and other infections she does not believe she has ever had it test for HIV or hepatitis or syphilis and is open get those done as well. She has never been on it kind of hormonal control because she has never had any to prescribe it to her she would be interested in it. She also does not think she has ever had a Pap. [facility] Medical History (Updated 09/05/24 @ 12:18 by Juliana Dudley CNM) Gallbladder abscess Depression Anxiety Social History Alcohol intake: current Alcohol intake frequency: holidays/special occasions only Alcohol type: beer and hard liquor Female Reproductive History Menstrual Age of Menarche: 11 Duration of menses: 3-5 days Date of last menstrual period: 08/14/24 control method: none Total pregnancies: 1 Physical Exam Vital Signs: Last Vital Signs BP 122/78 09/05/24 11:23 BMI result Body Mass Index 24.5 Other: Vaginal mucosa and cervix appears slightly red there is a thin yellow discharge. Cervix is nulliparous posterior slightly levo rotated Uterus is small anteverted nontender. Adnexa nontender, good tone appreciated patient found it difficult to create a Kegel. External Female Exam: normal external appearance Speculum Exam - Vagina: normal appearance of the vagina and normal vaginal discharge Speculum Exam - Cervix: normal appearance of the cervix Bimanual exam- vagina & uterus: normal bimanual exam, uterine size normal, consistency normal, uterine mobility normal, uterine shape normal and non-tender Bimanual Exam- Adnexa, other: normal adnexae, no masses and No adnexal tenderne ss Results Reviewed Results Reviewed: Patient: Nick Zuñiga MR#: [id number] : 2000 Acct:[id number] Age/Sex: 23 / F ADM Date: 05/30/24 Loc: HO.ED Attending Dr: Ordering Physician: Jone Stanford MD Date of Service: 05/30/24 Procedure(s): US pelvic and transvaginal Accession Number(s): [id number] cc: Yarely Cooper; Jone Stanford MD~ EXAMINATION: US PELVIS CLINICAL INFORMATION: Recent STI, now with bleeding and right-sided pain. COMPARISON: None available. TECHNIQUE: Ultrasound of the pelvis is performed using both transabdominal and transvaginal transducers along with Doppler. Transvaginal imaging is performed due to inadequate visualization transabdominally. FINDINGS: Uterus: The uterus is anteverted and measures 6.4 x 3.2 x 3.8 cm. The double wall endometrial thickness is 2 mm. The uterus is smooth in contour and has normal myometrial echogenicity. No visible fibroid. Adnexa: Both ovaries are visualized. There is normal color flow to the adnexa. There is no ovarian torsion. Two follicular cysts are present bilaterally. There is no pelvic ascites or fluid collection. Right ovary measures 3.2 x 2.4 x 3.1 cm for a volume of 12.5 mL. Left ovary measures 3.5 x 2.0 x 3.0 cm for a volume of 11 mL There is a paraovarian or exophytic benign water density, 1.6 x 1.2 x 1.6 cm, cyst present. US/US pelvic and transvaginal IMPRESSION: No significant abnormality is seen. Dictated By: Jone Virk MD Signed By: <Electronically signed by Jone Virk MD in OV> 05/30/24929 DD/ 7 TD/TT: Slab Conditioner Supervisor: DRAKE Assessment & Plan Assessment & Plan (1) Encounter for screening examination for sexually transmitted disease: Code(s): Z11.3 - Encounter for screening for infections with a predominantly sexual mode of transmission Category: Medical (2) Cervical cancer screening: Code(s): Z12.4 - Encounter for screening for malignant neoplasm of cervix Category: Medical (3) Pelvic pain: Code(s): R10.2 - Pelvic and perineal pain Category: Medical (4) Dysmenorrhea, unspecified: Code(s): N94.6 - Dysmenorrhea, unspecified Category: Medical (5) BCP ( control pills) initiation: Code(s): Z30.011 - Encounter for initial prescription of contraceptive pills Category: Medical Plan Patient is here as a follow-up from the ER for pelvic pain. She really needs basic obstetrician/gynecologist care she has never had a Pap smear she needs to be checked for STI testing though she has had tests at the ER. She says the ultrasound was completely normal. She is using condoms she says 100% but her discharge is abnormal in her cervix is fairly beefy red await testing results to see if there is anything to treat it may just be bacterial vaginosis. The patient is interested in starting on control and I reviewed every method and their side effects how they are used. 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 I am giving her a low-dose control pill to start she does not smoke or have any other contraindications I reviewed with her side effects and untoward effects and what to do if she experiences them. I do recommend she check to see whether not she had the Gardasil vaccine. I offered her testing for blood work for STIs and she accepted. If she does not receive the results of the portal she may cause it is. We will see her in 3 months to see how she is doing on the control pills also did a Pap as she has never had a Pap smear. Orders: Orders Hepatitis B Surface Antigen Today N94.6 - Dysmenorrhea, unspecified, R10.2 - Pelvic and perineal pain, Z11.3 - Encounter for screening for infections with a predominantly sexual mode of transmission, Z12.4 - Encounter for screening for malignant neoplasm of cervix, Z30.011 - Encounter for initial prescription of contraceptive pills Syphilis Screen Today N94.6 - Dysmenorrhea, unspecified, R10.2 - Pelvic and perineal pain, Z11.3 - Encounter for screening for infections with a predominantly sexual mode of transmission, Z12.4 - Encounter for screening for malignant neoplasm of cervix, Z30.011 - Encounter for initial prescription of contraceptive pills Hepatitis C Antibody Today N94.6 - Dysmenorrhea, unspecified, R10.2 - Pelvic and perineal pain, Z11.3 - Encounter for screening for infections with a predominantly sexual mode of transmission, Z12.4 - Encounter for screening for malignant neoplasm of cervix, Z30.011 - Encounter for initial prescription of contraceptive pills HIV Ab/Ag Today N94.6 - Dysmenorrhea, unspecified, R10.2 - Pelvic and perineal pain, Z11.3 - Encounter for screening for infections with a predominantly sexual mode of transmission, Z12.4 - Encounter for screening for malignant neoplasm of cervix, Z30.011 - Encounter for initial prescription of contraceptive pills Medications: New desog-e.estradiol/e.estradiol 0.15-0.02 mgx21 /0.01 mg x 5 1 tab PO DAILY 84 tabs 4RF Discontinued lidocaine 5% leave on most painful area for up to 12 hrs Discontinued Reason: Patient Completed Course 1 patch topical DAILY 15 ea 0RF metronidazole Discontinued Reason: Patient Completed Course 500 mg PO BID 7 days 14 tabs 0RF cyclobenzaprine Discontinued Reason: Patient Completed Course 5 mg PO TID PRN 10 tabs 0RF muscle spasm fluconazole Discontinued Reason: Patient Completed Course 150 mg PO Q3D 1 tab 0RF Coding Level of Care Code New Pt Level 4 (29842) Diagnoses Encounter for screening examination for sexually transmitted disease Z11.3 Cervical cancer screening Z12.4 Pelvic pain R10.2 Dysmenorrhea, unspecified N94.6 BCP ( control pills) initiation Z30.011
== END 2024-09-05 12:33 | disposition home or self-care (01) ==
PROVIDERS: PCP Physician Assistant; Visit Provider Advanced Practice Midwife
DX: Z11.3 Encounter for screening for infections with a predominantly sexual mode of transmission (principal); Z12.4 Encounter for screening for malignant neoplasm of cervix; R10.2 Pelvic and perineal pain; N94.6 Dysmenorrhea, unspecified; Z30.011 Encounter for initial prescription of contraceptive pills
CPT/HCPCS: 99204

== ENCOUNTER 2024-09-05 11:13 | Outpatient (REF) | payer OTHER, SELFPAY ==
[2024-09-06 04:57] LABS: CT PCR NOT DETECTED (Not Detect.); NG PCR NOT DETECTED (Not Detect.)
[2024-09-06 09:40] LABS: Bacterial Vaginosis PCR NEGATIVE (Negative); Candida Group PCR NOT DETECTED (Not Detect); Candida glab krusei PCR NOT DETECTED (Not Detect); Trichomonas vaginalis PCR NOT DETECTED (Not Detect)
== END 2024-09-05 11:14 | disposition home or self-care (01) ==
LOC: HO.LAB 11:13
PROVIDERS: PCP Physician Assistant; Visit Provider Advanced Practice Midwife
DX: N89.8 Other specified noninflammatory disorders of vagina (principal); Z20.2 Contact with and (suspected) exposure to infections with a predominantly sexual mode of transmission
CPT/HCPCS: 0352U; 87491; 87591

== ENCOUNTER 2024-09-05 12:26 | Outpatient (REF) | payer OTHER, SELFPAY ==
[2024-09-06 07:51] LABS: Syphilis Screen Nonreactive (Nonreactive)
[2024-09-06 08:13] LABS: HBsAGNum1 0.31 S/CO (0.00-0.99); HIV AB/AG Nonreactive (Nonreactive); HIV Num 1 0.05 S/CO (0.00-0.99); Hepatitis B Surface Antigen Negative (Negative); ~HepC Num1 0.11 S/CO (0.00-0.79); ~Hepatitis C Antibody Nonreactive (Nonreactive)
== END 2024-09-05 12:27 | disposition home or self-care (01) ==
LOC: HO.HHCL 12:26
PROVIDERS: Visit Provider Advanced Practice Midwife
DX: R10.2 Pelvic and perineal pain (principal); Z11.3 Encounter for screening for infections with a predominantly sexual mode of transmission; Z12.4 Encounter for screening for malignant neoplasm of cervix; N94.6 Dysmenorrhea, unspecified
CPT/HCPCS: 36415; 86780; 86803; 87340; 87389; 99202

== ENCOUNTER 2024-09-05 14:41 | Outpatient (REF) | payer OTHER, SELFPAY | END 2024-09-05 14:42 | disposition home or self-care (01) | LOC: HO.LNP 14:41 | PROVIDERS: Visit Provider Advanced Practice Midwife | DX: Z01.419 Encounter for gynecological examination (general) (routine) without abnormal findings (principal); N89.8 Other specified noninflammatory disorders of vagina | CPT/HCPCS: 88175 ==

== ENCOUNTER 2024-09-25 13:12 | Outpatient (AMB) | payer OTHER, SELFPAY ==
--- NOTE | 2024-09-25 13:15 | MHC.PC.OV ---
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 Allergies No Known Allergies Allergy (Verified 09/25/24 13:15) Medication List - Last Reconciled 09/25/24 by Yarely Cooper PA-C desog-e.estradiol/e.estradiol 0.15-0.02 mgx21 /0.01 mg x 5 1 tab PO DAILY trazodone 50 mg PO BEDTIME PRN Tobacco use date assessed: 09/25/24 Dental Screening Dental Screen Date: 09/25/24 Did you have a dental visit in the last 12 months?: Yes Did you have a dental problem in the last 6 months where you did not have access to dental care?: No Was dental information given to patient?: Patient has dentist HPI 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 She reports a history of insomnia and episodes of chest pressure. 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 she states that she started this while living in [place]. She recently moved to the area about a year ago and the change in location and her information technology internship has been stressful. The patient reports that the chest pressure began about a week ago, predominantly occurring at night. This sensation awakens her and is accompanied by shortness of breath but not dizziness or pain upon exertion. She associates this with recent increased stress levels and anxiety due to work and academic responsibilities. She states that while she was living in [place] a similar episode happened to her in 2020. She states that she underwent cardiac testing and it was negative. She states that she had an EKG and thinks additional testing that was all reassuring. Believed to be attributed to stress. She states that she is done with the on 10/04. She tells me it does not feel like acid reflux as she has had this in the past. She is not experiencing any palpitations or persisting symptoms. It resolved spontaneously after a couple of minutes and does not make her feel dizzy, nauseous or sweaty. She is exercising regularly and states that she is able to do this without any difficulty. Exercise helps her manage her stress. Denies any family history of early cardiac . [facility] Consultant: Up-to-date, recently started control Social History Review of Systems Physical Exam General: Cooperative, healthy appearing, comfortable, no acute distress and well developed Orientation: Patient oriented x3 Limitations: No limitations Head: Normal to inspection Ears: Hearing grossly normal bilaterally Nose: Normal external nose present Face and sinus: Normal facial exam Eyes: Appearance normal, both eyes and all related structures Neck: Normal visual inspection and Yes full ROM Respiratory: Normal respiratory effort and able to speak in complete sentences. Clear to auscultation bilaterally Cardiovascular: Regular rate and rhythm. Normal S1 and S2 GI: Normal to inspection. Soft to palpation and nontender Skin: No rashes or lesions noted Neuro: Patient oriented x3 Extremities: Normal to inspection Results - Labs: Complete blood count, liver function, kidney function, electrolytes ? all within normal limits. - Imaging: Pelvic ultrasound ? normal. - Serology: Negative for chlamydia and gonorrhea. - Urinalysis: Normal. - EKG: today in the office is normal sinus rhythm at a rate of 65 beats per minute with nonspecific STT wave abnormalities. No prior study to compare. EKG interpreted by myself and Dr. Tristan. Plan - Generalized Anxiety Disorder: Discussed possible need for treatment if symptoms continue or worsen. Overall well-controlled with exercise. - Insomnia: Continue trazodone as needed. Encourage lifestyle modifications to improve sleep hygiene. - Health Maintenance: Referral for cholesterol check when fasting, also checking thyroid function. - Chest pressure: not currently symptomatic. EKG listed above. Reports previous cardiac workup. Chest x-ray ordered. Continue monitoring and follow-up after the semester ends to evaluate stress-related symptoms and adjust management plans accordingly. Patient was informed and verbally consented to the use of an ambient scribe for clinic note documentation during this visit. Discussion Notes I discussed with the patient the probable contribution of stress and anxiety to her symptoms. I highlighted the importance of ruling out cardiac causes through immediate EKG. We talked about potential gastroesophageal reflux contributing to nighttime symptoms and its management. The necessity of completing fasting labs for cholesterol assessment was explained, alongside ensuring thyroid function is accurately assessed. We agreed to follow up after the information technology internship stress subsides and to undertake additional evaluations if chest pressure persists. I encouraged the patient to pursue stress management activities and maintain the current exercise routine, advising to seek immediate care if symptoms significantly worsen. Patient Instructions PFSH Medical History (Updated 09/25/24 @ 13:39 by aYrely Cooper PA-C) Gallbladder abscess Depression Anxiety Family History (Updated 09/25/24 @ 13:18 by Karyn Ang CMA) Paternal Aunt Depression Paternal Grandmother Diabetes Father Diabetes Mother HTN (hypertension) Other FH: mental illness Osteoarthritis Osteoporosis Social History (Updated 09/25/24 @ 13:19 by Karyn Ang CMA) Housing: Apartment Alcohol intake: current Alcohol intake frequency: holidays/special occasions only Alcohol type: beer and hard liquor Patient Tobacco Use Status: Never used Tobacco e-Cigarette/Vaping Use: Never Used Second Hand Smoke Exposure: No Use of substances other than those prescribed or required for medical reasons: No service: No Current occupational status: employed 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 1. Little interest or pleasure in doing things: several days 2. Feeling down, depressed, or hopeless: nearly every day 3. Trouble falling or staying asleep, or sleeping too much: nearly every day 4. Feeling tired or having little energy: nearly every day 5. Poor appetite or overeating: several days 6. Feeling bad about yourself - or that you are a failure or have let yourself or your family down: nearly every day 7. Trouble concentrating on things, such as reading the newspaper or watching television: nearly every day 8. Moving or speaking so slowly that other people could have noticed. Or the opposite - being so fidgety or restless that you have been moving around a lot more than usual: several days Depression Screening Interpretation: Positive Depression Screening Follow-up: Existing condition and Declines treatment Depression Screening Done: Yes 73552 - PHQ-9 Billing: Yes Source: Developed by Drs. Zach Rico, Radha Kevin, Noel Fisher and colleagues, with an educational prabha from [employer]. Thrive Questionnaire Date Thrive assessed: 09/25/24 I am a: Patient What is your living situation today?: I have a steady place to live Within the past 12 months, did the food you bought not last and you didn't have the money to get more?: Sometimes True Within the past 12 months, did you worry whether your food would run out before you got money to buy more?: Sometimes True Do you have trouble paying for medicines?: No Do you have trouble getting transportation to medical appointments?: No Do you have trouble paying your heating and electricity bill?: No Do you have trouble taking care of your child, family member or friend?: No Do you have trouble with day-to-day activities such as bathing, preparing meals, shopping, managing finances, etc.?: No Are you currently unemployed and looking for a job?: No Are you interested in more education?: No Please select the resources that you would like help with: None Currently or been in a relationship where the following occur: No concerns reported THRIVE Score: 2 AUDIT C Alcohol Use Questionnaire (AUDIT-C) 1. How often do you have a drink containing alcohol?: 2-4 times a month 2. How many drinks containing alcohol do you have on a typical day when you are drinking?: 1 or 2 3. How often do you have six or more drinks on one occasion?: Never Total Score: 2 MARY-7 AMB Questionnaire MARY-7 Date MARY - 7 assessed: 09/25/24 Feeling nervous, anxious, or on edge: 3 = Nearly every day Not being able to stop or control worryin = More than half the days Worrying too much about different things: 2 = More than half the days Trouble relaxin = More than half the days Being so restless that it is hard to sit still: 2 = More than half the days Becoming easily annoyed or irritable: 1 = Several days Feeling afraid as if something awful might happen: 2 = More than half the days Total MARY-7 score (0-4 normal; 5-9 mild; 10-14 moderate; 15-21 severe): 14 Source: Developed by Drs. Zach Rico, Radha Kevin, Noel Fisher and colleagues, with an educational prabha from [employer] MARY-7 Assessment Billing MARY-7 Assessment Tool: MARY-7 Assessment 55778 Physical exam (Primary Care) Vital Signs: Last Vital Signs Pulse 88 09/25/24 13:21 BP 116/78 09/25/24 13:21 Pulse Ox 99 09/25/24 13:21 Oxygen Delivery Method Room Air 09/25/24 13:21 BMI result Body Mass Index 25.6 Tobacco/Smoking Status: Tobacco use Status Tobacco use date assessed 09/25/24 09/25/24 13:22 Patient Tobacco Use Status Never used Tobacco 09/25/24 13:22 e-Cigarette/Vaping Use Never Used 09/25/24 13:22 Depression Screening Interpretation: Positive Depression Screening Follow-up: Existing condition and Declines treatment Thrive Assessment: Date of Thrive Assessment Date Thrive assessed 09/25/24 09/25/24 13:22 Currently or been in a relationship where the following occur: No concerns reported Office Procedures EKG Details: EKG normal sinus rhythm at a rate of 60 beats per minute with nonspecific STT wave abnormalities. No prior study to compare. EKG interpreted by myself. 12534-Mdftgydjhtzygrbpz, Complete Coding Level of Care Code Est Pt Level 3 (27205) New Pt Prev Care 18-39yr(64673 Diagnoses Insomnia G47.00 Encounter for routine history and physical examination Z00.00 Chest pressure R07.89 Generalized anxiety disorder F41.1 CPT Codes EKG - CPT: 62210-Yyvghgqojoexvhrkg, Complete ([id number]) Additional Codes PHQ-9 - 37747 - PHQ-9 Billing: Yes ([id number]) MARY-7 Assessment Billing - MARY-7 Assessment Tool: MARY-7 Assessment 06572 ([id number]) Assessment & Plan Assessment & Plan (1) Insomnia: Code(s): G47.00 - Insomnia, unspecified Category: Medical (2) Encounter for routine history and physical examination: Code(s): Z00.00 - Encounter for general adult medical examination without abnormal findings (3) Chest pressure: Code(s): R07.89 - Other chest pain Category: Medical (4) Generalized anxiety disorder: Code(s): F41.1 - Generalized anxiety disorder Category: Medical Plan . Orders: Orders Lipid Panel Today G47.00 - Insomnia, unspecified, Z00.00 - Encounter for general adult medical examination without abnormal findings TSH reflex Free T4 Today G47.00 - Insomnia, unspecified XR chest 2V Today F41.1 - Generalized anxiety disorder, R07.89 - Other chest pain AMB EKG-In Office Today F41.1 - Generalized anxiety disorder, R07.89 - Other chest pain Medications: New trazodone 50 mg PO BEDTIME PRN 90 tabs 3RF sleep
[2024-09-25 13:21] VITALS: BP 116/78; PULSE 88; O2SAT 99; BMI 25.6
== END 2024-09-25 14:03 | disposition home or self-care (01) ==
PROVIDERS: PCP Physician Assistant; Visit Provider Physician Assistant
DX: G47.00 Insomnia, unspecified (principal); Z00.00 Encounter for general adult medical examination without abnormal findings; R07.89 Other chest pain; F41.1 Generalized anxiety disorder

== ENCOUNTER → 2024-09-25 13:12 | Outpatient (BNVA) | payer OTHER, SELFPAY | PROVIDERS: PCP Physician Assistant; Visit Provider Physician Assistant | DX: Z00.01 Encounter for general adult medical examination with abnormal findings (principal); F41.1 Generalized anxiety disorder; R07.89 Other chest pain; G47.00 Insomnia, unspecified | CPT/HCPCS: 93005; 96127; 99212; 99385 ==

== ENCOUNTER 2024-09-26 11:32 | Outpatient (REF) | payer OTHER, SELFPAY ==
[2024-09-26 13:26] LABS: Cholesterol 154 mg/dL (<200); HDL Cholesterol 44 mg/dL (>40); LDL Cholesterol Calculated 98 mg/dL (<100); Triglycerides 60 mg/dL (<150)
[2024-09-26 13:35] LABS: TSH reflex Free T4 1.17 uIU/mL (0.32-4.0)
== END 2024-09-26 11:33 | disposition home or self-care (01) ==
LOC: HO.HHCL 11:32
PROVIDERS: Visit Provider Physician Assistant
DX: Z00.00 Encounter for general adult medical examination without abnormal findings (principal); G47.00 Insomnia, unspecified
CPT/HCPCS: 36415; 80061; 84443

== ENCOUNTER 2024-09-26 11:49 | Outpatient (REF) | payer OTHER, SELFPAY ==
--- NOTE | ~2024-09-26 | XR_ITS ---
EXAMINATION: XR CHEST CLINICAL INFORMATION: Chest pain. COMPARISON: None available. TECHNIQUE: 2 views of the chest were obtained. FINDINGS: The lungs are clear. The cardiomediastinal silhouette is normal in size. There is no pleural effusion or pneumothorax. No acute osseous abnormality. XR/XR chest 2V IMPRESSION: No acute cardiopulmonary findings. Electronically signed by: Perez Weiss MD 09/26/2024 03:12 PM [facility]
== END 2024-09-26 11:50 | disposition home or self-care (01) ==
LOC: HO.XRAY 11:49
PROVIDERS: PCP Physician Assistant; Visit Provider Physician Assistant
DX: R07.89 Other chest pain (principal); F41.1 Generalized anxiety disorder
CPT/HCPCS: 71046

== ENCOUNTER 2025-01-15 13:05 | Outpatient (AMB) | payer OTHER, SELFPAY ==
--- NOTE | 2025-01-15 13:06 | A.OFFVIS_ITS ---
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 She is also sexually active when her boyfriend comes home and so that is good as a control method as well. She is very happy with them. She is also on trazodone and is doing well with that she takes both at night together and she says an alarm all the time. 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 Her Pap smear that I did at the last visit was negative. She is not having any other health concerns. 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 [employer] Current occupational exposures/hazards: No Cognitive needs: No Hearing needs: No Vision needs: No Female Reproductive History Menstrual Age of Menarche: 11 Date of last menstrual period: 12/29/24 control method: pills Total pregnancies: 0 Date of last pap smear: 09/06/1924 (negative) Physical Exam Vital Signs: Last Vital Signs BP 120/70 01/15/25 13:11 BMI result Body Mass Index 25.6 Results Reviewed Results Reviewed: Name: Nick Zuñiga Age/Sex: 24/F Attending: Juliana Dudley CNM : 2000 Submitted by: Juliana Dudley CNM Copies to: MR #: [id number] Status: DEP REF Collected: 09/05/24 Location: [facility] Received: 09/06/24 Interpretation Satisfactory for evaluation. Negative for intraepithelial lesion or malignancy. Mild inflammation. Clinical Information LMP: 08/15/2024 Previous PAP test: No previous PAP Material Received ThinPrep-Cervical Electronically Signed By: CASSIE Mack (ASCP) 09/10/24 0807 As of August 14, 2024, the technical services to include automated prescreening performed by the ThinPrep Imaging System, PAP screening and HPV testing will be performed at [facility] (CLIA #[id number]), [address] [place] [address]. Testing for HPV was performed using the Renee EDDIE 6800 system. The presence of HPV in the female genital tract is associated with a number of diseases, including cervical carcinoma. The HPV DNA high risk pool tests for HPV 31, 33, 35, 39, 45, 51, 52, 56, 58, 59, 66 and 68. The testing for HPV 16 and 18 genotypes has also been performed. A positive result indicates detection of nucleic acid sequences from one or more subtypes, whereas a negative result indicates such sequences were not detected. All professional services are performed by [facility] ([address] [place] [address], [place] [id number]; ; CLIA #[id number]). The PAP Test is a screening procedure with the inherent possibility of both false negative and false positive results. Results should be interpreted in the context of historic and current clinical findings. Reliability of the PAP Test is enhanced by performing the test on a regular repetitive basis. Patient: Nick Zuñiga Age/Sex: 24/F MR#: [id number] Page 1 of 1 Assessment & Plan Assessment & Plan (1) Dysmenorrhea, unspecified: Code(s): N94.6 - Dysmenorrhea, unspecified Category: Medical (2) Surveillance for control, oral contraceptives: Code(s): Z30.41 - Encounter for surveillance of contraceptive pills Category: Medical Plan Thorough discussion about how she is doing on the control pills and how she is learning so much about side effects of pills in general and everything else in pharmacy school and paying attention to medications work in the body and her brain is exploding. Everything is so fascinating she and her class mid study alone and then collaborate and review with each other as well. She does not need anything else this year I reviewed her negative Pap. I am going to renew her pills for another year and we will see her next year. Medications: Refilled desog-e.estradiol/e.estradiol 0.15-0.02 mgx21 /0.01 mg x 5 1 tab PO DAILY 84 tabs 4RF Coding Level of Care Code Est Pt Level 3 (47277) Diagnoses Dysmenorrhea, unspecified N94.6 Surveillance for control, oral contraceptives Z30.41
[2025-01-15 13:11] VITALS: BP 120/70; BMI 25.6
== END 2025-01-15 13:42 | disposition home or self-care (01) ==
LOC: HO.HWSM 13:05
PROVIDERS: PCP Physician Assistant; Visit Provider Advanced Practice Midwife
DX: N94.6 Dysmenorrhea, unspecified (principal); Z30.41 Encounter for surveillance of contraceptive pills
CPT/HCPCS: 99213

== ENCOUNTER → 2025-01-15 13:05 | Outpatient (BNVA) | payer OTHER, SELFPAY | PROVIDERS: PCP Physician Assistant; Visit Provider Advanced Practice Midwife | DX: Z30.41 Encounter for surveillance of contraceptive pills (principal); N94.6 Dysmenorrhea, unspecified | CPT/HCPCS: 99212 ==

== ENCOUNTER 2025-06-25 01:19 | Emergency (ER) | payer OTHER, SELFPAY ==
[2025-06-25 01:23] VITALS: BP 125/75; PULSE 94; RESP 16; TEMP 36.5; O2SAT 99; BMI 27.2
[2025-06-25 01:58] LABS: MANUAL DIFF FLAG NO
[2025-06-25 01:59] LABS: Hematocrit 37.8 % (37.0-47.0); Hemoglobin 13.0 g/dl (12.0-16.0); Imm Gran Abs Auto 0.04 X10*3/uL (0.00-0.03); Imm Gran Pct Auto 0.3 % (0.0-0.4); Lymphocytes Absolute Auto 1.8 X10*3/uL (1.2-4.9); Mean Corpuscular HGB Conc 34.4 g/dl (31.0-35.0); Mean Corpuscular Hemoglobin 29.5 pg (27.0-33.0); Mean Corpuscular Volume 85.9 fL (80.0-98.0); NRBC Abs Auto 0.000 X10*3/uL (0.0-0.012); NRBC Pct Auto 0.0 /100WBC (0.0-0.2); Platelet Count 331 X10*3/uL (160-400); Red Blood Count 4.40 X10*6/uL (4.20-5.50); White Blood Count 15.9 X10*3/uL (4.8-10.8)
[2025-06-25 02:02] LABS: Appearance Urine Cloudy; Glucose Urine UA Negative (Negative); PH 6.0 (5.0-9.0); Specific Gravity - Urine 1.015 (1.005-1.025); UMIC TRIGGER UACC YES
[2025-06-25 02:04] LABS: UACC Culture Trigger YES
[2025-06-25 02:15] LABS: Alanine Aminotransferase 19 U/L (0-31); Albumin Level 4.3 g/dL (3.5-5.0); Alkaline Phosphatase 57 U/L (39-117); Anion Gap 13 (12-20); Aspartate Amino Transferase 27 U/L (5-31); Blood Urea Nitrogen 12 mg/dL (9-16); Calcium 9.3 mg/dL (8.4-10.2); Carbon Dioxide 24 mmol/L (22-29); Chloride 105 mmol/L (96-108); Creatinine Clr Calc Pharmacy 124.8; Estimated Glomerular Filt Rate > 60; Potassium 4.0 mmol/L (3.3-5.1); Sodium 138 mmol/L (135-145); Total Protein 7.7 g/dL (6.5-8.0)
--- NOTE | 2025-06-25 02:46 | ED_ITS ---
HPI - Female Genitourinary General Chief complaint: Urogenital-Female Stated complaint: abd pain, urogen female Time Seen by Provider: 06/25/25 02:46 Source: patient Mode of arrival: ambulatory Limitations: no limitations History of Present Illness ED Provider: Dr. Linda Snider HPI Narrative: 24-year-old female with no significant past medical history presenting with painful urination, frequency of urination ongoing for the last several hours tonight. Patient had been feeling well prior to this. Denies associated flank pain or fever. Has been having associated hematuria. Denies bowel changes, nausea or vomiting. Last menstrual cycle was several weeks ago. Related Data Previous Rx's ?Medication ?Instructions ?Recorded trazodone 50 mg tablet 50 mg PO BEDTIME PRN sleep # 90 tabs 09/25/24 desogestrel-e.estradiol 0.15 1 tab PO DAILY #84 tabs 0 01/15/25 mg-0.02 mg(21)/e.estrad 0.01 mg(5) tablet nitrofurantoin 100 mg PO Q12H 7 days #14 ca ps 06/25/25 monohydrate/macrocrystals 100 mg capsule (Macrobid) phenazopyridine 100 mg tablet 100 mg PO TID PRN pain 6 doses #6 06/25/25 (Pyridium) tabs Allergies Allergy/AdvReac Type Severity Reaction Status Date / Time No Known Allergies Allergy Verified 06/25/25 01:25 Review of Systems 2 Review of Systems: as per HPI, full review of systems performed and negative but for the above mentioned pertinent positives and negatives. PENDING SALE TO [facility] Past Medical History Medical History Gallbladder abscess Depression Anxiety Family History Family History Paternal Aunt Depression Paternal Grandmother Diabetes Father Diabetes Mother HTN (hypertension) Other FH: mental illness Osteoarthritis Osteoporosis Social History Social History Housing: Apartment Alcohol intake: current Alcohol intake frequency: holidays/special occasions only Alcohol type: beer and hard liquor Patient Tobacco Use Status: Never used Tobacco e-Cigarette/Vaping Use: Never Used Second Hand Smoke Exposure: No Advance Directives: No Advance Directives Information Provided: Yes service: No Current occupational status: employed 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 SKIN: Normal skin color for ethnicity, warm, dry, no rashes noted. HEENT:? Normocephalic, atraumatic, no stridor, dry mucous membranes, dentition intact, EOMI. NECK: Soft, supple, full ROM, midline structures nontender, no step-offs, no deformities, no lymphadenopathy. CHEST: Heart regular rhythm, no murmurs, symmetric chest rise and fall. PULMONARY: Clear to auscultation bilaterally, diminished at the bases, no labored breathing, no wheezes/rhales/rhonchi. ABDOMINAL: Soft, nondistended, nontender, positive bowel sounds in all quadrants. : Deferred. MUSCULOSKELETAL: Normal tone, full range of motion, no deformities, no peripheral edema. NEURO: Alert and oriented x3, CN II through XII intact, equal strength and sensation bilateral upper and lower extremities, no focal neurologic deficits.? PSYCHIATRIC: Flat affect, fluid speech, good eye contact and appropriate demeanor. Vital Signs: Vital Signs: Last Vital Signs Temp 97.7 F 06/25/25 01:23 Pulse 94 06/25/25 01:23 Resp 16 06/25/25 01:23 BP 125/75 06/25/25 01:23 Pulse Ox 99 06/25/25 01:23 O2 Del Method Room Air 06/25/25 01:23 BMI result Body Mass Index 27.2 Medical Decision Making Medical Decision Making [facility] Narrative: 24-year-old female presenting with dysuria and hematuria found to have urinary tract infection. We will treat with Macrobid, pyridium. Using shared decision making, plan for discharge home to follow-up with primary care and/or specialist.? Patient understands and agrees with plan for discharge.? Discharged home in stable condition. Differential Diagnosis Differential Diagnoses: The differential diagnosis associated with the presentation includes UTI, hemorrhagic cystitis, kidney stone, vaginal bleeding, STDs, among others Lab Data [facility] Lab Attestation statement: I reviewed the patient's lab results. 06/25/25 01:50 06/25/25 01:50 Labs: Lab Results 06/25/25 06/25/25 Range/Units 01:47 01:50 WBC 15.9 H (4.8-10.8) X10*3/uL RBC 4.40 (4.20-5.50) X10*6/uL Hgb 13.0 (12.0-16.0) g/dl Hct 37.8 (37.0-47.0) % MCV 85.9 (80.0-98.0) fL MCH 29.5 (27.0-33.0) pg MCHC 34.4 (31.0-35.0) g/dl RDW 12.9 (11.0-16.0) % Plt Count 331 (160-400) X10*3/uL MPV 9.9 (9.4-12.3) fL Immature Gran % (Auto) 0.3 (0.0-0.4) % Neut % (Auto) 81.3 H (45-73) % Lymph % (Auto) 11.4 L (20-40) % [place] % (Auto) 5.8 (2-11) % Eos % (Auto) 0.8 (0-4) % Baso % (Auto) 0.4 (0-2) % Lymph # (Auto) 1.8 (1.2-4.9) X10*3/uL [place] # (Auto) 0.9 (0.1-1.2) X10*3/uL Eos # (Auto) 0.1 (0.0-0.4) X10*3/uL Baso # (Auto) 0.1 (0.0-0.2) X10*3/uL Abs Immat Gran (auto) 0.04 H (0.00-0.03) X10*3/uL Absolute Neuts (auto) 13.0 H (2.0-8.3) x10*3/uL Absolute Nucleated RBC 0.000 (0.0-0.012) X10*3/uL Nucleated RBC % (auto) 0.0 (0.0-0.2) /100WBC Sodium 138 (135-145) mmol/L Potassium 4.0 (3.3-5.1) mmol/L Chloride 105 (96-108) mmol/L Carbon Dioxide 24 (22-29) mmol/L Anion Gap 13 (12-20) BUN 12 (9-16) mg/dL Creatinine 0.67 (0.5-1.4) mg/dL Estim Creat Clear Calc 124.8 Estimated GFR > 60 Random Glucose 103 (60-115) mg/dL Calcium 9.3 (8.4-10.2) mg/dL Total Bilirubin 0.2 (0.0-1.0) mg/dL AST 27 (5-31) U/L ALT 19 (0-31) U/L Alkaline Phosphatase 57 (39-117) U/L Total Protein 7.7 (6.5-8.0) g/dL Albumin 4.3 (3.5-5.0) g/dL Urine Color Red A Urine Appearance Cloudy Urine pH 6.0 (5.0-9.0) Ur Specific [place] 1.015 (1.005-1.025) Urine Protein >=1000 (4+) H (Neg-Trace) mg/dL Urine Glucose (UA) Negative (Negative) mg/dL Urine Ketones Negative (Negative) mg/dL Urine Blood Large (3+) H (Negative) Urine Nitrite Negative (Negative) Ur Leukocyte Esterase Moderate (2+) H (Negative) Urine RBC >20 H (0-2) /HPF Urine WBC >50 H (0-5) /HPF Ur Squamous Epith Cells 0-2 (0-2) /HPF Urine Bacteria None Seen (None Seen) Hyaline Casts 0-2 (0-2) /LPF Prescription Management I considered prescription management with: Pain Medication and Antibiotic Discharge Plan Discharge Clinical Impression: Cystitis, acute hemorrhagic Patient Disposition: Home, Self-Care Instructions: Urinary Tract Infection in Women (ED) Additional Instructions: Take your antibiotic as prescribed until the course is completed. Do not stop this medication early when you start to feel better. Use Pyridium for pain when you pee. You may also try taking ibuprofen or Tylenol. Return to the ER with any new or worsening symptoms including: Worsening pain despite medication, fevers greater than 100?, vomiting, any new symptom that concerns you. Call 911 with any medical emergency. Prescriptions: New phenazopyridine [Pyridium] 100 mg tablet 100 mg PO TID PRN (Reason: pain) Qty: 6 0RF nitrofurantoin monohyd/m-cryst [Macrobid] 100 mg capsule 100 mg PO Q12H 7 Days Qty: 14 0RF Rx Instructions: must administer with a meal/food No Action trazodone 50 mg tablet 50 mg PO BEDTIME PRN (Reason: sleep) Qty: 90 3RF desog-e.estradiol/e.estradiol 0.15-0.02 mgx21 /0.01 mg x 5 tablet 1 tab PO DAILY Qty: 84 4RF Print Language: Setswana
[2025-06-25 04:39] VITALS: BP 122/82; PULSE 86; RESP 16; TEMP 36.8; O2SAT 100
[2025-06-25 04:40] VITALS: BP 122/82; PULSE 86; RESP 16; TEMP 36.8; O2SAT 100
== END 2025-06-25 04:40 | disposition home or self-care (01) ==
PROVIDERS: Emergency Provider Emergency Medicine; PCP Physician Assistant Medical
DX: N30.91 Cystitis, unspecified with hematuria (principal)
CPT/HCPCS: 36415; 80053; 81001; 81003; 85025; 87086; 99283